=== PATIENT | male | born 1980 | race Caucasian/White ===

== ENCOUNTER 2020-02-15 16:01 | Emergency (ER) | payer OTHER ==
[~2020-02-15] VITALS: Ht 172.7 cm; Wt 65.8 kg
[2020-02-15 16:06] VITALS: Ht 172.7 cm; Wt 65.8 kg
[2020-02-15 17:04] VITALS: BP 105/63
== END 2020-02-15 17:04 | disposition home or self-care (01) ==
LOC: ED 16:01
DX: S43.005A Unspecified dislocation of left shoulder joint, initial encounter (principal); W01.0XXA Fall on same level from slipping, tripping and stumbling without subsequent striking against object, initial encounter; Y93.89 Activity, other specified; Y92.89 Other specified places as the place of occurrence of the external cause; Y99.8 Other external cause status
CPT/HCPCS: Q0092